=== PATIENT | male | born 1965 | race Two or more races ===

== ENCOUNTER 2024-06-17 02:00 | Inpatient (IN) | payer MEDICARE, MEDICAID ==
[~2024-06-17] VITALS: Ht 175.3 cm; Wt 105.0 kg
[2024-06-17 05:31] LABS: BASOPHILS % (AUTO) 0.5 % (0.0-2.0); HEMATOCRIT 32.6 % (41-53); LYMPHOCYTES # (AUTO) 0.8 K/uL (1.0-4.8); LYMPHOCYTES % (AUTO) 17.2 % (22.0-44.0); MEAN CORPUSCULAR HEMOGLOBIN 27.5 pg (26.0-34.0); MEAN CORPUSCULAR HGB CONC 30.7 G/dL (31.0-37.0); MEAN CORPUSCULAR VOLUME 90 fL (80-100); MONOCYTES # (AUTO) 0.7 K/uL (0.1-1.0); MONOCYTES % (AUTO) 15.5 % (2.0-9.0); NEUTROPHILS # (AUTO) 2.7 K/uL (1.8-7.7); NEUTROPHILS % (AUTO) 62.8 % (40.0-70.0); PLATELET COUNT (AUTO) 160 K/uL (150-450); RED BLOOD CELL COUNT(AUTO) 3.64 MIL/uL (4.50-5.90); RED CELL DISTRIBUTION WIDTH 21.1 % (11.5-14.5); WHITE BLOOD COUNT (AUTO) 4.4 K/uL (4.5-11.0)
[2024-06-17 05:41] LABS: ANION GAP 12 mmol/L (8-16); CALCIUM, TOTAL 8.1 mg/dL (8.8-10.5); CARBON DIOXIDE 23 mmol/L (22-29); CHLORIDE 105 mmol/L (98-107); CREATININE 5.58 mg/dL (0.60-1.30); GLOMERULAR FILTR. RATE CALC 11 mL/min (>60); GLUCOSE,RANDOM 137 mg/dL (70-110); POTASSIUM 3.9 mmol/L (3.5-5.1); SODIUM SERUM 140 mmol/L (136-145); UREA NITROGEN, BLOOD 40 mg/dL (7-18)
[2024-06-17 05:44] LABS: ALCOHOL, BLOOD (SERUM) < 3 mg/dL (0-10)
[2024-06-17 10:29] LABS: COVID AG,FIA SOURCE NASAL SWAB
[2024-06-17] MEDS ORDERED: LOPERAMIDE HCL 2 MG CAPSULE PO PRN (10:45)
[2024-06-17] MEDS ORDERED: LORazepam 2 MG TABLET PO PRN (10:45)
[2024-06-17] MEDS ORDERED: ACETAMINOPHEN 325 MG TABLET PO PRN ×2 (10:45→15:15)
[2024-06-17] MEDS ORDERED: HALOPERIDOL 5 MG TABLET PO PRN (10:45)
[2024-06-17] MEDS ORDERED: MAGNESIUM HYDROXIDE SUSPENSION 30 ML UDCUP PO PRN ×2 (10:45→15:15)
[2024-06-17] MEDS ORDERED: MAG HYDROX/ALUMINUM HYD/SIMETH ES 30 ML SUSPENSION UDCUP PO PRN (10:45)
[2024-06-17] MEDS ORDERED: ZOLPIDEM TARTRATE 10 MG TABLET PO PRN (10:45)
[2024-06-17 10:53] LABS: SARS-COV2 (COVID) ANTIGEN,FIA Negative (Negative)
[2024-06-17] MEDS ORDERED: ZOLPIDEM TARTRATE 5 MG TABLET PO PRN (15:15)
[2024-06-17] MEDS ORDERED: DEXTROSE 50%-WATER 25 GM/50 ML SYRINGE IVP PRN (15:15)
[2024-06-17] MEDS ORDERED: MORPHINE SULFATE 2 MG/ML SYRINGE IVP PRN (15:15)
[2024-06-17] MEDS ORDERED: BISACODYL 10 MG RECTAL RECTAL SUPPOSITORY PR PRN (15:15)
[2024-06-17] MEDS ORDERED: ONDANSETRON HCL 4 MG/2 ML VIAL IVP PRN (15:15)
[2024-06-17] MEDS ORDERED: HYDROCODONE/ACETAMINOPHEN 5-325 MG TABLET PO PRN (15:15)
[2024-06-17] MEDS ORDERED: CloNIDine HCL 0.1 MG TABLET PO PRN (15:30)
[2024-06-17] MEDS: HEPARIN SODIUM,PORCINE 5,000 UNITS/ML VIAL SQ SCH (15:43)
[2024-06-17 21:00] VITALS: BP 147/49; PULSE 82; RESP 20; TEMP 98.5; O2SAT 97
[2024-06-17] MEDS: DOCUSATE SODIUM 100 MG CAPSULE PO SCH (21:00)
[2024-06-18] MEDS: PANTOPRAZOLE SODIUM 40 MG DR TABLET PO SCH (09:00)
[2024-06-18] MEDS ORDERED: TRAZ-257 PO (09:30)
[2024-06-18] MEDS ORDERED: SERT-440 PO (09:30)
[2024-06-18] MEDS: SERTRALINE HCL 100 MG TABLET PO SCH (09:30)
[2024-06-18] MEDS: FOLIC ACID/VIT B COMPLEX AND C TABLET PO SCH (16:45)
[2024-06-18] MEDS: TraZODone HCL 100 MG TABLET PO SCH (21:00)
[2024-06-19 12:01] LABS: GLUCOMETER DEV NAME(LOC) 6S.2; GLUCOSE,POINT OF CARE 65 MG/DL (70-110)
[2024-06-19 16:03] VITALS: BP 129/57; PULSE 77; RESP 19; TEMP 98.1; O2SAT 99
[2024-06-19 16:17] LABS: CALCIUM, TOTAL 8.1 mg/dL (8.8-10.5); CREATININE 10.23 mg/dL (0.60-1.30); POTASSIUM 4.8 mmol/L (3.5-5.1)
[2024-06-19 16:20] LABS: MAGNESIUM 2.4 mg/dL (1.80-2.40); PHOSPHORUS 5.1 mg/dL (2.5-4.9)
[2024-06-19 19:26] VITALS: BP 130/64; PULSE 99; RESP 20; TEMP 97.9; O2SAT 100
[2024-06-19 21:31] LABS: GLUCOMETER DEV NAME(LOC) 6S.2; GLUCOSE,POINT OF CARE 139 MG/DL (70-110)
[2024-06-20 05:21] VITALS: BP 139/62; PULSE 68; RESP 18; TEMP 97.8; O2SAT 98
[2024-06-20 07:56] VITALS: BP 121/64; PULSE 74; RESP 19; TEMP 98.9; O2SAT 97
[2024-06-20 13:01] LABS: GLUCOMETER DEV NAME(LOC) 6S.2; GLUCOSE,POINT OF CARE 110 MG/DL (70-110)
[2024-06-20] MEDS: INSULIN LISPRO 100 UNITS/ML SQ PRN (13:08)
[2024-06-20 14:55] VITALS: BP 137/70; PULSE 77; RESP 19; TEMP 97.5; O2SAT 99
[2024-06-20 15:16] LABS: BASOPHILS % (AUTO) 0.4 % (0.0-2.0); EOSINOPHILS % (AUTO) 3.6 % (1.0-6.0); HEMATOCRIT 33.9 % (41-53); HEMOGLOBIN 10.5 g/dL (13.5-17.5); LYMPHOCYTES # (AUTO) 0.5 K/uL (1.0-4.8); LYMPHOCYTES % (AUTO) 15.3 % (22.0-44.0); MEAN CORPUSCULAR HEMOGLOBIN 27.8 pg (26.0-34.0); MEAN CORPUSCULAR VOLUME 90 fL (80-100); MONOCYTES # (AUTO) 0.4 K/uL (0.1-1.0); MONOCYTES % (AUTO) 10.4 % (2.0-9.0); NEUTROPHILS # (AUTO) 2.5 K/uL (1.8-7.7); NEUTROPHILS % (AUTO) 70.3 % (40.0-70.0); PLATELET COUNT (AUTO) 199 K/uL (150-450); RED BLOOD CELL COUNT(AUTO) 3.78 MIL/uL (4.50-5.90); RED CELL DISTRIBUTION WIDTH 20.8 % (11.5-14.5); WHITE BLOOD COUNT (AUTO) 3.5 K/uL (4.5-11.0)
[2024-06-20 15:38] LABS: CALCIUM, TOTAL 8.1 mg/dL (8.8-10.5); CREATININE 11.59 mg/dL (0.60-1.30); MAGNESIUM 2.5 mg/dL (1.80-2.40); POTASSIUM 4.8 mmol/L (3.5-5.1)
[2024-06-20 17:10] LABS: GLUCOMETER DEV NAME(LOC) 6S.2; GLUCOSE,POINT OF CARE 150 MG/DL (70-110)
[2024-06-20 19:32] VITALS: BP 141/64; PULSE 77; RESP 19; TEMP 98; O2SAT 99
[2024-06-21 04:00] VITALS: BP 138/74; PULSE 79; RESP 18; TEMP 97.8; O2SAT 98
[2024-06-21 04:51] LABS: GLUCOMETER DEV NAME(LOC) 6S.2; GLUCOSE,POINT OF CARE 219 MG/DL (70-110)
[2024-06-21 06:10] VITALS: BP 114/50; PULSE 70; RESP 18; TEMP 97.8; O2SAT 98
[2024-06-21 06:56] LABS: GLUCOMETER DEV NAME(LOC) 6S.2; GLUCOSE,POINT OF CARE 127 MG/DL (70-110)
[2024-06-21 07:52] VITALS: BP 121/56; PULSE 72; RESP 18; TEMP 97.7; O2SAT 98
[2024-06-21 14:03] LABS: CALCIUM, TOTAL 8.5 mg/dL (8.8-10.5); CREATININE 12.52 mg/dL (0.60-1.30); POTASSIUM 5.2 mmol/L (3.5-5.1)
[2024-06-21 14:07] LABS: PHOSPHORUS 5.2 mg/dL (2.5-4.9)
[2024-06-21] MEDS ORDERED: FOLI0.8T54 PO (15:21)
[2024-06-21] MEDS ORDERED: PANT-31 PO (15:22)
[2024-06-21] MEDS ORDERED: ACET-2247 PO (15:23)
[2024-06-21] MEDS ORDERED: CLON-441 PO (15:26)
[2024-06-21] MEDS ORDERED: INSU100V SQ (15:31)
[2024-06-21 15:41] VITALS: BP 143/66; PULSE 83; RESP 18; TEMP 97.6; O2SAT 98
[2024-06-21] MEDS: SODIUM ZIRCONIUM CYCLOSILICATE 5 GM POWDER PACKET PO ONE ×2 (16:47)
== END 2024-06-21 18:20 | DRG 682 ==
LOC: EMS 02:00 → EDBEDREQ 13:53 → EDBEDREQSVC 13:53 → UNDOADMIN 14:34 → 3EX 14:34 → EDH 19:13 → 6S 21:01
PROVIDERS: ADMIT Internal Medicine; ATTEND Internal Medicine
DX: I12.0 Hypertensive chronic kidney disease with stage 5 chronic kidney disease or end stage renal disease (principal); N18.6 End stage renal disease; F33.2 Major depressive disorder, recurrent severe without psychotic features; R45.851 Suicidal ideations; E87.6 Hypokalemia; E11.22 Type 2 diabetes mellitus with diabetic chronic kidney disease; D63.8 Anemia in other chronic diseases classified elsewhere; E78.5 Hyperlipidemia, unspecified; Z20.822 Contact with and (suspected) exposure to COVID-19; G47.00 Insomnia, unspecified; E11.51 Type 2 diabetes mellitus with diabetic peripheral angiopathy without gangrene; Z89.512 Acquired absence of left leg below knee; Z99.2 Dependence on renal dialysis; Z79.899 Other long term (current) drug therapy; Z91.199 Patient's noncompliance with other medical treatment and regimen due to unspecified reason; Z91.148 Patient's other noncompliance with medication regimen for other reason; Z91.158 Patient's noncompliance with renal dialysis for other reason
CPT/HCPCS: 80048; 82962; 83735; 84100; 85025; 87340; 99285; G0480; J1644